=== PATIENT | male | born 1975 | race Two or more races ===

== ENCOUNTER 2023-12-01 09:11 | Outpatient (CLI) | payer OTHER | END 2023-12-01 09:13 | disposition home or self-care (01) | LOC: SONOGRAMA 09:11 | PROVIDERS: ATTEND Pathology Anatomic Pathology & Clinical Pathology | DX: D34 Benign neoplasm of thyroid gland (principal); E06.3 Autoimmune thyroiditis; E07.89 Other specified disorders of thyroid; E03.9 Hypothyroidism, unspecified ==